=== PATIENT | male | born 1945 | race African-American/Black ===

== ENCOUNTER 2018-04-25 09:14 | Day surgery (SDC) | payer MEDICARE, BC ==
[~2018-04-25] VITALS: Ht 185.4 cm; Wt 104.8 kg
[2018-04-25] MEDS ORDERED: RIVA20TA MT (10:18)
[2018-04-25] MEDS ORDERED: BUDE6HFA INH (10:18)
[2018-04-25] MEDS ORDERED: ASPI-1158 MT (10:18)
[2018-04-25] MEDS ORDERED: OLME1TAB27 MT (10:18)
[2018-04-25] MEDS ORDERED: TIOT18CA3 INH (10:18)
[2018-04-25] MEDS ORDERED: ZET10 MT (10:18)
[2018-04-25] MEDS ORDERED: ATOR80TA PO (10:18)
[2018-04-25] MEDS ORDERED: SOTA80TA25 MT (10:18)
[2018-04-25] MEDS ORDERED: PROPOFOL 200MG/20ML VIAL IV ONE (10:51)
[2018-04-25] MEDS ORDERED: MIDAZOLAM HCL 2 MG/2 ML VIAL ONE (10:52)
[2018-04-25] MEDS ORDERED: SUCCINYLCHOLINE CHLORIDE 200MG/10ML IV ONE (10:52)
[2018-04-25] MEDS ORDERED: LIDOCAINE HCL/PF 1% 10 MG/ML 5ML VIAL ONE (10:52)
== END 2018-04-25 14:30 | disposition home or self-care (01) ==
LOC: CARD 09:14
PROVIDERS: ATTEND Specialist
DX: R00.1 Bradycardia, unspecified (principal); I48.2 Chronic atrial fibrillation; Z95.1 Presence of aortocoronary bypass graft; Z95.5 Presence of coronary angioplasty implant and graft; Z79.82 Long term (current) use of aspirin; Z79.899 Other long term (current) drug therapy
CPT/HCPCS: 92960; 93005; J0330; J2250; J3490; J2704